=== PATIENT | male | born 1935 ===

== ENCOUNTER 2018-02-12 06:46 | Day surgery (SDC) | payer MEDICARE ==
[2018-01-28 16:46] VITALS: BMI 28.2
[2018-02-12] MEDS ORDERED: Propofol 10 mg/ml Inj (20 ML) ONE (07:48)
[2018-02-12] MEDS ORDERED: Lactated Ringer's 500 ML IV ONE (07:55)
--- NOTE | 2018-02-12 07:57 | CP.SDSHP ---
Same Day Surgery H & P - History Proposed Procedure: EGD. Colonoscopy Pre-Op Diagnosis: GI Bleeding. Anemia - Previous Medical/Surgical History Cardiac: Hypertension, ASHD/CAD, PVD Misc: Anemia, Hepatitis, Other (Ischemic colitis 2015, DJD, BPH, Gout) Previous Surgical History: TURP. GB - Allergies Allergies: Allergies No Known Allergies Allergy (Verified 01/28/18 16:54) - Physical Exam Vital Signs: Vital Signs 02/12/18 07:18 Temperature 97.7 F Pulse Rate 66 Respiratory 16 Rate Blood Pressure 158/51 H O2 Sat by Pulse 99 Oximetry Mental Status: Alert & Oriented x3 Neuro: WNL Heart: WNL Lungs: WNL GI: WNL - Impression Impression: GI bleeding. Anemia Pt. Evaluated Today:Candidate for Anesthesia & Procedure: Yes - Date & Time Date: 02/12/18 Time: 07:57 Short Stay Discharge - Short Stay Discharge Admitting Diagnosis/Reason for Visit: ANEMIA / DIVERTICULITIS / HEMORRHOIDS Disposition: HOME/ ROUTINE
[2018-02-12 08:01] VITALS: O2SAT 100
[2018-02-12 08:41] VITALS: TEMP 97.8
[2018-02-12 09:51] VITALS: BP 160/67; PULSE 67; RESP 15
== END 2018-02-12 09:25 | disposition home or self-care (01) ==
LOC: C.ENDO 06:46
PROVIDERS: ATTEND Internal Medicine Gastroenterology
DX: D12.0 Benign neoplasm of cecum (principal); K57.30 Diverticulosis of large intestine without perforation or abscess without bleeding; D50.9 Iron deficiency anemia, unspecified; K21.9 Gastro-esophageal reflux disease without esophagitis; K64.1 Second degree hemorrhoids; I10 Essential (primary) hypertension; I25.10 Atherosclerotic heart disease of native coronary artery without angina pectoris; K29.60 Other gastritis without bleeding; K31.9 Disease of stomach and duodenum, unspecified; K44.9 Diaphragmatic hernia without obstruction or gangrene; M10.9 Gout, unspecified; N40.0 Benign prostatic hyperplasia without lower urinary tract symptoms
CPT/HCPCS: 43239; 45380; 88305; J2001; J2704; J7120